=== PATIENT | female | born 1985 | race Hispanic/Latino ===

== ENCOUNTER 2016-07-20 14:53 | Emergency (ER) | payer OTHER ==
[2016-07-20] MEDS ORDERED: EMLA CREAM 5GM (LIDOCAINE/PRILOCAINE) As Ordered ONE (17:06)
[2016-07-20] MEDS ORDERED: ADACEL/BOOSTRIX VACCINE (DIPHTH/PERTUSS/ACELL/TETANUS)0.5ML SYR (90715) As Ordered ONE (17:08)
[2016-07-20] MEDS ORDERED: ACETAMINOPHEN 325 MG TAB As Ordered ONE (17:08)
--- NOTE | 2016-07-20 18:08 | EDDOCDS ---
Physician Documentation [facility] Name: Cary Holguin Age: 31 yrs Sex: Female : 1985 Arrival Date: 07/20/2016 Time: 14:53 Bed I6 / 28 Private MD: Kayleigh [facility] [place] Disposition: 07/20/16 17:54 Discharged to Home/Self Care. Impression: Laceration without foreign body, left thigh. - Condition is Stable. - Discharge Instructions: Stitches, Ramirez, or Adhesive Wound Closure. - Prescriptions for Tylenol 325 mg Oral Tablet - take 2 tablet by ORAL route every 6 hours as needed; 1 bottle. - Medication Reconciliation, Local Pharmacy Hours form. - Follow up: Emergency Department; When: 10 - 14 days; Reason: Staple/Suture removal. - Problem is new. - Symptoms have improved. Historical: - Allergies: No known drug Allergies; Bees (Swelling); - Home Meds: 1. none - PMHx: none; - PSHx: none; - Immunization history:: Last tetanus immunization: unknown. - Family history: Not pertinent. - Social history: Smoking status: Patient states was never smoker of tobacco. No barriers to communication noted, The patient speaks fluent [place] Islander. - : The pt / caregiver states he / she is not on anticoagulants. Home medication list is obtained from the patient. - Exposure Risk Screening:: None identified. 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 0 in. (152.40 cm) (R); Pain 2/10; 18:05 BP 110 / 54; Pulse 71; Resp 18; Temp 97.9; Pulse Ox 98% ; Pain 2/10; pml 14:55 Body Mass Index 23.44 (54.43 kg, 152.40 cm) lr2 Procedures: 17:52 Laceration repair:. dk1 Laceration: 17:52 Wound Repair of 1cm ( 0.4in ) full thickness laceration to left gluteal fold. Linear dk1 shaped.. Distal neuro/vascular/tendon intact. Anesthesia: Topical anesthetic administered with 5 mls of EMLA. Wound prep: Simple cleansing with betadine by nurse. Skin closed with 3 [place] using Staple gun. Dressed with Bacitracin, 4x4's, Kerlix. Patient tolerated well. MDM: 16:36 [facility] Payment Agreement was scanned into [employer] and attached to record. 16:49 Financial registration complete. gb 17:06 Tetanus- Diptheria-Acellular Pertussis 0.5 ml IM once; Routine booster 10-64yrs, >64 dk1 with child contact [facility] ordered. 17:07 Lidocaine-Prilocaine Cream 2.5 %-2.5 % 1 applic Topical in affected area once ordered. dk1 17:07 Acetaminophen Tablet 650 mg PO once ordered. dk1 17:07 Wound Care ordered. dk1 Administered Medications: 17:09 Drug: Lidocaine-Prilocaine 1 applic [lidocaine-prilocaine 2.5 %-2.5 % topical cream (1 jo3 applic)] Route: Topical; Site: affected area; 17:11 Drug: Tetanus- Diptheria-Acellular Pertussis 0.5 ml [diphth,pertussis(acel),tetanus 2.5 pml Lf unit-8 mcg-5 Lf/0.5mL IM syringe (0.5 mL)] {Aging Box Hand: [employer] digital. Exp: 08/01/2018. Lot #: [id number]. } Route: IM; Site: left deltoid; 17:11 Drug: Acetaminophen 650 mg [acetaminophen 325 mg tablet (2 tabs)] Route: PO; pml Signatures: Myra Bazan RN Samira Mosqueda, Reg Reg Art Sandy PA-C PA-C dk1 Tania Mancera RN RN jo3 Alma Helms RN RN pml The chart was reviewed and I authenticate all verbal orders and agree with the evaluation and treatment provided.Attachments: 16:36 [facility] Payment Agreement gb MTDD
--- NOTE | 2016-07-20 18:08 | EDDOCDS ---
Nurse's Notes [facility] Name: Cary Holguin Age: 31 yrs Sex: Female : 1985 Arrival Date: 07/20/2016 Time: 14:53 Bed I6 / 28 Private MD: PABLO Victor Diagnosis: Laceration without foreign body, left thigh Presentation: 07/20 15:07 Presenting complaint: Patient states: about 15 minutes ago while ice skating fell and [facility] the blade of her skate punctured the back of her left thigh. Adult Sepsis Screening: The patient does not have new or worsening altered mentation. Patient's respiratory rate is less than 22. Systolic blood pressure is greater than 100. Patient has a qSOFA score of 0- Negative Sepsis Screen. Suicide/Homicide risk assessment- the patient denies having any suicidal and/or homicidal ideations and does not present with any other emotional, behavioral or mental health complaints. Status: The patient is a dependent. Transition of care: patient was not received from another setting of care. 15:07 Acuity: VERNELL Level 4 [facility] 15:07 Method Of Arrival: Walkin/Carried/Asstd [facility] Triage Assessment: 15:10 General: Appears uncomfortable, Behavior is appropriate for age, pleasant. Pain: [facility] Location: left hamstring Pain currently is 8 out of 10 on a pain scale. Pt Declines HIV testing. Neurological: Level of Consciousness is awake, alert, Oriented to person, place, time. Respiratory: Airway is patent Respiratory effort is even, unlabored, Respiratory pattern is regular, symmetrical. Derm: Skin is pink, warm & dry. Musculoskeletal: Circulation, motion, and sensation intact. Injury Description: Laceration sustained to left hamstring is clean, 0.5 to 2.5 cm long, was sustained 30-60 minutes ago. is bleeding a small amount. MATERIALS COORDINATOR: 15:10 LMP 07/20/2016 [facility] Historical: - Allergies: No known drug Allergies; Bees (Swelling); - Home Meds: 1. none - PMHx: none; - PSHx: none; - Immunization history:: Last tetanus immunization: unknown. - Family history: Not pertinent. - Social history: Smoking status: Patient states was never smoker of tobacco. No barriers to communication noted, The patient speaks fluent Guamanian. - : The pt / caregiver states he / she is not on anticoagulants. Home medication list is obtained from the patient. - Exposure Risk Screening:: None identified. Screenin:09 Screening information is obtained from the patient. Fall risk: No risks identified. jo3 Assistance ADL's: requires no assistance with activities of daily living. Abuse/DV Screen: The patient / caregiver reports he/she is: not in a situation that causes fear, pain or injury. Nutritional screening: No deficits noted. Advance Directives: There is no active DNR order. home support is adequate. Assessment: 17:09 General: Appears in no apparent distress, comfortable, Behavior is appropriate for age, jo3 cooperative, pleasant. Neurological: Level of Consciousness is awake, alert, Oriented to person, place, time. Respiratory: Airway is patent Respiratory effort is even, unlabored. Derm: Jagged puncture wound to left upper thigh. 17:44 Reassessment: Patient appears in no apparent distress at this time. Patient states jo3 feeling better. Patient states symptoms have improved. Pt reports that pain is decreased. wound irrigated with NS as per verbal order by Lea Sandy. Pt tolerated well . 18:05 General: Appears in no apparent distress, comfortable, Behavior is appropriate for age, pml cooperative. Neurological: Level of Consciousness is awake, alert, Oriented to person, place, time. Cardiovascular: Capillary refill < 3 seconds. Respiratory: Airway is patent Respiratory effort is even, unlabored. GI: Abdomen is non- distended. Derm: Skin is pink, warm & dry. Vital Signs: 14:55 BP 105 / 46; Pulse 77; Resp 18; Temp 98.2(O); Pulse Ox 100% on R/A; Weight 54.43 kg lr2 (R); Height 5 ft. 0 in. (152.40 cm) (R); Pain 2/10; 18:05 BP 110 / 54; Pulse 71; Resp 18; Temp 97.9; Pulse Ox 98% ; Pain 2/10; pml 14:55 Body Mass Index 23.44 (54.43 kg, 152.40 cm) lr2 Vitals: 14:55 Log In Time: July 20, 2016 at 14:53. lr2 ED Course: 14:54 Patient visited by Anel Fisher. lr2 14:54 Patient moved to Waiting lr2 14:55 Kayleigh [facility] is Private Physician. lr2 14:56 Patient moved to Pre RCE lr2 15:09 Triage Initiated kpj 16:06 Patient moved to Triage 3 [facility] 16:36 [facility] Payment Agreement was scanned into [employer] assistant and attached to record. gb 16:48 Art Sandy [facility] dk1 16:48 Shanelle Donaldson MD is Attending Physician. dk1 16:48 Patient visited by Art Sandy PA-C. dk1 17:00 Patient moved to dem1 17:09 The patient / caregiver is instructed regarding the plan of care and ED course. jo3 17:38 Patient visited by Tania Mancera,RN. jo3 17:45 Patient visited by Tania Mancera,INDIGO. jo3 17:45 No IV's were initiated during this patient's visit. Assist provider with laceration pml repair using ashanti, Laceration was 2.6 to 7.5 cm. with a simple repair. Performed by Art Sandy PA-C Set up tray. Dressed with 4X4s, Patient tolerated well. Administered Medications: 17:09 Drug: Lidocaine-Prilocaine 1 applic [lidocaine-prilocaine 2.5 %-2.5 % topical cream (1 jo3 applic)] Route: Topical; Site: affected area; 17:11 Drug: Tetanus- Diptheria-Acellular Pertussis 0.5 ml [diphth,pertussis(acel),tetanus 2.5 pml Lf unit-8 mcg-5 Lf/0.5mL IM syringe (0.5 mL)] {Tableau Administrator: Kand[employer]. Exp: 08/01/2018. Lot #: [id number]. } Route: IM; Site: left deltoid; 17:11 Drug: Acetaminophen 650 mg [acetaminophen 325 mg tablet (2 tabs)] Route: PO; pml Order Results: There are currently no results for this order. Outcome: 17:54 Discharge ordered by Provider. dk1 18:06 Discharge Assessment: Patient awake, alert and oriented x 3. No cognitive and/or pml functional deficits noted. Patient verbalized understanding of disposition instructions. patient administered narcotics - no. 18:06 The following High Risk Discharge criteria are identified: None. Discharged to home pml ambulatory. Condition: good Condition: stable. Discharge instructions given to patient, Instructed on discharge instructions, follow up and referral plans. medication usage, wound care, Demonstrated understanding of instructions, medications, Pt was receptive of discharge instructions/ teaching. Prescriptions given X 1. No special radiology studies were completed. Property sent home with patient. 18:07 Patient left the ED. pml Signatures: Myra Bazan, RN RN Jyoti Allen, RN RN [facility] Samira Martinez, Reg Reg Art Bacon, PA-C PA-C laura1 Tania ManceraRN RN Alma Van RN RN Verena Hernandez1 Anel Fisher2 MTDLindsey
--- NOTE | 2016-07-22 19:07 | EDDOCDS ---
Physician Documentation [facility] Name: Cary Holguin Age: 31 yrs Sex: Female : 1985 Arrival Date: 07/20/2016 Time: 14:53 Bed I6 / 28 Private MD: Kayleigh [facility] [place] Disposition: 07/20/16 17:54 Discharged to Home/Self Care. Impression: Laceration without foreign body, left thigh. - Condition is Stable. - Discharge Instructions: Stitches, Ramirez, or Adhesive Wound Closure. - Prescriptions for Tylenol 325 mg Oral Tablet - take 2 tablet by ORAL route every 6 hours as needed; 1 bottle. - Medication Reconciliation, Local Pharmacy Hours form. - Follow up: Emergency Department; When: 10 - 14 days; Reason: Staple/Suture removal. - Problem is new. - Symptoms have improved. Historical: - Allergies: No known drug Allergies; Bees (Swelling); - Home Meds: 1. none - PMHx: none; - PSHx: none; - Immunization history:: Last tetanus immunization: unknown. - Family history: Not pertinent. - Social history: Smoking status: Patient states was never smoker of tobacco. No barriers to communication noted, The patient speaks fluent Guamanian. - : The pt / caregiver states he / she is not on anticoagulants. Home medication list is obtained from the patient. - Exposure Risk Screening:: None identified. SENIOR NET SOFTWARE DEVELOPER: 07/20 15:10 LMP 07/20/2016 [facility] Vital Signs: 14:55 BP 105 / 46; Pulse 77; Resp 18; Temp 98.2(O); Pulse Ox 100% on R/A; Weight 54.43 kg / lr2 120 lbs (R); Height 5 ft. 0 in. (152.40 cm) (R); Pain 2/10; 18:05 BP 110 / 54; Pulse 71; Resp 18; Temp 97.9; Pulse Ox 98% ; Pain 2/10; pml 14:55 Body Mass Index 23.44 (54.43 kg, 152.40 cm) lr2 Procedures: 17:52 Laceration repair:. dk1 Laceration: 17:52 Wound Repair of 1cm ( 0.4in ) full thickness laceration to left gluteal fold. Linear dk1 shaped.. Distal neuro/vascular/tendon intact. Anesthesia: Topical anesthetic administered with 5 mls of EMLA. Wound prep: Simple cleansing with betadine by nurse. Skin closed with 3 [place] using Staple gun. Dressed with Bacitracin, 4x4's, Kerlix. Patient tolerated well. MDM: 16:36 [facility] Payment Agreement was scanned into [employer] and attached to record. gb 16:49 Financial registration complete. gb 17:06 Tetanus- Diptheria-Acellular Pertussis 0.5 ml IM once; Routine booster 10-64yrs, >64 dk1 with child contact [place] [employer] ordered. 17:07 Lidocaine-Prilocaine Cream 2.5 %-2.5 % 1 applic Topical in affected area once ordered. dk1 17:07 Acetaminophen Tablet 650 mg PO once ordered. dk1 17:07 Wound Care ordered. dk1 21:50 T-Sheet-- Draft Copy was scanned into [employer] and attached to record. klr Administered Medications: 17:09 Drug: Lidocaine-Prilocaine 1 applic [lidocaine-prilocaine 2.5 %-2.5 % topical cream (1 jo3 applic)] Route: Topical; Site: affected area; 17:11 Drug: Tetanus- Diptheria-Acellular Pertussis 0.5 ml [diphth,pertussis(acel),tetanus 2.5 pml Lf unit-8 mcg-5 Lf/0.5mL IM syringe (0.5 mL)] {Energy Engineer: Xeebel [employer]. Exp: 08/01/2018. Lot #: [id number]. } Route: IM; Site: left deltoid; 17:11 Drug: Acetaminophen 650 mg [acetaminophen 325 mg tablet (2 tabs)] Route: PO; pml Signatures: Myra Bazan RN RN kpj Barnhardt, Gloria, Reg Reg Art Bacon PA-C PA-C dk1 Tania Mancera RN RN jo3 Quay, Paulina, RN RN pml Redder, Kathie klr The chart was reviewed and I authenticate all verbal orders and agree with the evaluation and treatment provided.Attachments: 16:36 [facility] Payment Agreement gb 21:50 T-Sheet-- Draft Copy klr Chart Complete MTDD
--- NOTE | 2016-07-22 19:07 | EDDOCDS ---
Physician Documentation [facility] Name: Cary Holguin Age: 31 yrs Sex: Female : 1985 Arrival Date: 07/20/2016 Time: 14:53 Bed I6 / 28 Private MD: Kayleigh [facility] [place] [place] Disposition: 07/20/16 17:54 Discharged to Home/Self Care. Impression: Laceration without foreign body, left thigh. - Condition is Stable. - Discharge Instructions: Stitches, Ramirez, or Adhesive Wound Closure. - Prescriptions for Tylenol 325 mg Oral Tablet - take 2 tablet by ORAL route every 6 hours as needed; 1 bottle. - Medication Reconciliation, Local Pharmacy Hours form. - Follow up: Emergency Department; When: 10 - 14 days; Reason: Staple/Suture removal. - Problem is new. - Symptoms have improved. Historical: - Allergies: No known drug Allergies; Bees (Swelling); - Home Meds: 1. none - PMHx: none; - PSHx: none; - Immunization history:: Last tetanus immunization: unknown. - Family history: Not pertinent. - Social history: Smoking status: Patient states was never smoker of tobacco. No barriers to communication noted, The patient speaks fluent [place]. - : The pt / caregiver states he / she is not on anticoagulants. Home medication list is obtained from the patient. - Exposure Risk Screening:: None identified. TOP EXECUTIVE: 07/20 15:10 LMP 07/20/2016 [facility] Vital Signs: 14:55 BP 105 / 46; Pulse 77; Resp 18; Temp 98.2(O); Pulse Ox 100% on R/A; Weight 54.43 kg / lr2 120 lbs (R); Height 5 ft. 0 in. (152.40 cm) (R); Pain 2/10; 18:05 BP 110 / 54; Pulse 71; Resp 18; Temp 97.9; Pulse Ox 98% ; Pain 2/10; pml 14:55 Body Mass Index 23.44 (54.43 kg, 152.40 cm) lr2 Procedures: 17:52 Laceration repair:. dk1 Laceration: 17:52 Wound Repair of 1cm ( 0.4in ) full thickness laceration to left gluteal fold. Linear dk1 shaped.. Distal neuro/vascular/tendon intact. Anesthesia: Topical anesthetic administered with 5 mls of EMLA. Wound prep: Simple cleansing with betadine by nurse. Skin closed with 3 [place] using Staple gun. Dressed with Bacitracin, 4x4's, Kerlix. Patient tolerated well. MDM: 16:36 [facility] Payment Agreement was scanned into [employer] and attached to record. gb 16:49 Financial registration complete. gb 17:06 Tetanus- Diptheria-Acellular Pertussis 0.5 ml IM once; Routine booster 10-64yrs, >64 dk1 with child contact [place] [employer] ordered. 17:07 Lidocaine-Prilocaine Cream 2.5 %-2.5 % 1 applic Topical in affected area once ordered. dk1 17:07 Acetaminophen Tablet 650 mg PO once ordered. dk1 17:07 Wound Care ordered. dk1 21:50 T-Sheet-- Draft Copy was scanned into [employer] and attached to record. klr Administered Medications: 17:09 Drug: Lidocaine-Prilocaine 1 applic [lidocaine-prilocaine 2.5 %-2.5 % topical cream (1 jo3 applic)] Route: Topical; Site: affected area; 17:11 Drug: Tetanus- Diptheria-Acellular Pertussis 0.5 ml [diphth,pertussis(acel),tetanus 2.5 pml Lf unit-8 mcg-5 Lf/0.5mL IM syringe (0.5 mL)] {Patent Chemist: [employer]. Exp: 08/01/2018. Lot #: [id number]. } Route: IM; Site: left deltoid; 17:11 Drug: Acetaminophen 650 mg [acetaminophen 325 mg tablet (2 tabs)] Route: PO; pml Signatures: Myra Bazan RN RN kpj Barnhardt, Gloria, Reg Reg Art Bacon PA-C PA-C dk1 Tania Mancera RN RN jo3 Quay, Paulina, RN RN pml Redder, Kathie klr The chart was reviewed and I authenticate all verbal orders and agree with the evaluation and treatment provided.Attachments: 16:36 [facility] Payment Agreement gb 21:50 T-Sheet-- Draft Copy klr Chart Complete MTDD
--- NOTE | 2016-07-22 19:07 | EDDOCDS ---
Nurse's Notes [facility] Name: Cary Holguin Age: 31 yrs Sex: Female : 1985 Arrival Date: 07/20/2016 Time: 14:53 Bed I6 / 28 Private MD: PABLO Victor Diagnosis: Laceration without foreign body, left thigh Presentation: 07/20 15:07 Presenting complaint: Patient states: about 15 minutes ago while ice skating fell and [facility] the blade of her skate punctured the back of her left thigh. Adult Sepsis Screening: The patient does not have new or worsening altered mentation. Patient's respiratory rate is less than 22. Systolic blood pressure is greater than 100. Patient has a qSOFA score of 0- Negative Sepsis Screen. Suicide/Homicide risk assessment- the patient denies having any suicidal and/or homicidal ideations and does not present with any other emotional, behavioral or mental health complaints. Status: The patient is a dependent. Transition of care: patient was not received from another setting of care. 15:07 Acuity: VERNELL Level 4 [facility] 15:07 Method Of Arrival: Walkin/Carried/Asstd [facility] Triage Assessment: 15:10 General: Appears uncomfortable, Behavior is appropriate for age, pleasant. Pain: [facility] Location: left hamstring Pain currently is 8 out of 10 on a pain scale. Pt Declines HIV testing. Neurological: Level of Consciousness is awake, alert, Oriented to person, place, time. Respiratory: Airway is patent Respiratory effort is even, unlabored, Respiratory pattern is regular, symmetrical. Derm: Skin is pink, warm & dry. Musculoskeletal: Circulation, motion, and sensation intact. Injury Description: Laceration sustained to left hamstring is clean, 0.5 to 2.5 cm long, was sustained 30-60 minutes ago. is bleeding a small amount. [employer] SALESPERSON: 15:10 LMP 07/20/2016 [facility] Historical: - Allergies: No known drug Allergies; Bees (Swelling); - Home Meds: 1. none - PMHx: none; - PSHx: none; - Immunization history:: Last tetanus immunization: unknown. - Family history: Not pertinent. - Social history: Smoking status: Patient states was never smoker of tobacco. No barriers to communication noted, The patient speaks fluent [place]. - : The pt / caregiver states he / she is not on anticoagulants. Home medication list is obtained from the patient. - Exposure Risk Screening:: None identified. Screenin:09 Screening information is obtained from the patient. Fall risk: No risks identified. jo3 Assistance ADL's: requires no assistance with activities of daily living. Abuse/DV Screen: The patient / caregiver reports he/she is: not in a situation that causes fear, pain or injury. Nutritional screening: No deficits noted. Advance Directives: There is no active DNR order. home support is adequate. Assessment: 17:09 General: Appears in no apparent distress, comfortable, Behavior is appropriate for age, jo3 cooperative, pleasant. Neurological: Level of Consciousness is awake, alert, Oriented to person, place, time. Respiratory: Airway is patent Respiratory effort is even, unlabored. Derm: Jagged puncture wound to left upper thigh. 17:44 Reassessment: Patient appears in no apparent distress at this time. Patient states jo3 feeling better. Patient states symptoms have improved. Pt reports that pain is decreased. wound irrigated with NS as per verbal order by Lea Sandy. Pt tolerated well . 18:05 General: Appears in no apparent distress, comfortable, Behavior is appropriate for age, pml cooperative. Neurological: Level of Consciousness is awake, alert, Oriented to person, place, time. Cardiovascular: Capillary refill < 3 seconds. Respiratory: Airway is patent Respiratory effort is even, unlabored. GI: Abdomen is non- distended. Derm: Skin is pink, warm & dry. Vital Signs: 14:55 BP 105 / 46; Pulse 77; Resp 18; Temp 98.2(O); Pulse Ox 100% on R/A; Weight 54.43 kg lr2 (R); Height 5 ft. 0 in. (152.40 cm) (R); Pain 2/10; 18:05 BP 110 / 54; Pulse 71; Resp 18; Temp 97.9; Pulse Ox 98% ; Pain 2/10; pml 14:55 Body Mass Index 23.44 (54.43 kg, 152.40 cm) lr2 Vitals: 14:55 Log In Time: July 20, 2016 at 14:53. lr2 ED Course: 14:54 Patient visited by Anel Fisher. lr2 14:54 Patient moved to Waiting lr2 14:55 [facility] is Private Physician. lr2 14:56 Patient moved to Pre RCE lr2 15:09 Triage Initiated kpj 16:06 Patient moved to Triage 3 [facility] 16:36 [facility] Payment Agreement was scanned into [employer] and attached to record. gb 16:48 Art Sandy PA-C is PHCP. dk1 16:48 Shanelle Donaldson MD is Attending Physician. dk1 16:48 Patient visited by Art Sandy PA-C. dk1 17:00 Patient moved to dem1 17:09 The patient / caregiver is instructed regarding the plan of care and ED course. jo3 17:38 Patient visited by Tania Mancera,RN. jo3 17:45 Patient visited by Tania Mancera,INDIGO. jo3 17:45 No IV's were initiated during this patient's visit. Assist provider with laceration pml repair using ashanti, Laceration was 2.6 to 7.5 cm. with a simple repair. Performed by Art Sandy PA-C Set up tray. Dressed with 4X4s, Patient tolerated well. 21:50 T-Sheet-- Draft Copy was scanned into [employer] and attached to record. klr Administered Medications: 17:09 Drug: Lidocaine-Prilocaine 1 applic [lidocaine-prilocaine 2.5 %-2.5 % topical cream (1 jo3 applic)] Route: Topical; Site: affected area; 17:11 Drug: Tetanus- Diptheria-Acellular Pertussis 0.5 ml [diphth,pertussis(acel),tetanus 2.5 pml Lf unit-8 mcg-5 Lf/0.5mL IM syringe (0.5 mL)] {Electronic Technician: [employer]. Exp: 08/01/2018. Lot #: [id number]. } Route: IM; Site: left deltoid; 17:11 Drug: Acetaminophen 650 mg [acetaminophen 325 mg tablet (2 tabs)] Route: PO; pml Order Results: There are currently no results for this order. Outcome: 17:54 Discharge ordered by Provider. dk1 18:06 Discharge Assessment: Patient awake, alert and oriented x 3. No cognitive and/or pml functional deficits noted. Patient verbalized understanding of disposition instructions. patient administered narcotics - no. 18:06 The following High Risk Discharge criteria are identified: None. Discharged to home pml ambulatory. Condition: good Condition: stable. Discharge instructions given to patient, Instructed on discharge instructions, follow up and referral plans. medication usage, wound care, Demonstrated understanding of instructions, medications, Pt was receptive of discharge instructions/ teaching. Prescriptions given X 1. No special radiology studies were completed. Property sent home with patient. 18:07 Patient left the ED. pml Signatures: Myra Bazan, RN RN Jyoti Allen, RN RN [facility] Samira Martinez, Reg Reg Art Sandy, PA-C PA-C Tania YoungRN RN Alma VanRN RN Verena Hernandez Kathie klr Ross, Laura lr2 Chart Complete FLETCHER
== END 2016-07-20 18:07 | disposition home or self-care (01) ==
LOC: M ED 14:53
DX: S71.112A Laceration without foreign body, left thigh, initial encounter (principal); W45.8XXA Other foreign body or object entering through skin, initial encounter; Y92.89 Other specified places as the place of occurrence of the external cause; Y93.89 Activity, other specified; Y99.8 Other external cause status; Z91.030 Bee allergy status